=== PATIENT | male | born 1995 | race Caucasian/White ===

== ENCOUNTER 2017-03-03 05:52 | Emergency (ER) | payer BC ==
--- NOTE | 2017-03-03 07:35 | ED ---
HPI Chest Pain - HPI Summary HPI Summary: 21M presents with chest pain and racing heart for 10 mins this morning. He states he was unable to sleep last night. At 4am he woke up think he was having a heart attack. He states he felt sweaty, had midsternal chest pain, SOB , and dizzy. He states he has had a cough over the past few days. He denies any calf pain or swelling or recent travel. He states that his symptoms resolved. He does have a history of anxiety. He is a nonsmoker and denies any cardiac family history. - History of Current Complaint Chief Complaint: EDGeneral Time Seen by Provider: 03/03/17 06:38 Pain Intensity: 0 - Allergy/Home Medications Allergies/Adverse Reactions: Allergies Allergy/AdvReac Type Severity Reaction Status Date / Time No Known Allergies Allergy Verified 03/03/17 06:04 PMH/Surg Hx/FS Hx/Imm Hx Endocrine/Hematology History: Denies: Hx Diabetes Cardiovascular History: Denies: Hx Angina, Hx Hypertension Psychiatric History: Reports: Hx Anxiety Infectious Disease History: No Infectious Disease History: Denies: Traveled Outside the [place] in Last 30 Days - Family History Known Family History: Negative: Cardiac Disease - Social History Alcohol Use: None Substance Use Type: Reports: None Smoking Status (MU): Never Smoked Tobacco Review of Systems Negative: Fever Positive: Palpitations - resolved, Chest Pain - resolved Positive: Shortness Of Breath - resolved, Cough Negative: Abdominal Pain All Other Systems Reviewed And Are Negative: Yes Physical Exam Triage Information Reviewed: Yes Vital Signs On Initial Exam: Initial Vitals Temp Pulse Resp BP Pulse Ox 99 F 97 20 134/82 98 03/03/17 06:01 03/03/17 06:01 03/03/17 06:01 03/03/17 06:01 03/03/17 06:01 Vital Signs Reviewed: Yes Appearance: Positive: Well-Appearing Skin: Positive: Warm, Dry Head/Face: Positive: Normal Head/Face Inspection Eyes: Positive: Normal, Conjunctiva Clear ENT: Positive: Normal ENT inspection, Pharynx normal, TMs normal Respiratory/Lung Sounds: Positive: Clear to Auscultation, Breath Sounds Present Cardiovascular: Positive: Normal, RRR Abdomen Description: Positive: Nontender, Soft Bowel Sounds: Positive: Present - [place] Coma Scale Coma Scale Total: 15 Diagnostics - Vital Signs Vital Signs Temp Pulse Resp BP Pulse Ox 03/03/17 06:03 99 F 97 20 134/82 98 03/03/17 06:01 99 F 97 20 134/82 98 - Laboratory Result Diagrams: 03/03/17 08:46 03/03/17 08:46 Lab Statement: Any lab studies that have been ordered have been reviewed, and results considered in the medical decision making process. - Radiology chest Xray Interpretation: No Acute Changes Radiology Interpretation Completed By: Radiologist - EKG No standard instances Cardiac Rate: NL EKG Rhythm: Sinus Rhythm Chest Pain Course/Dx - Course Course Of Treatment: 21M presents with chest pain, palpitations, SOB for 10 mins this morning. He does have a history of anxeity but states he has never had symptoms. He states his symptoms resolved. He does not have any cardiac risk factors. on exam no reproducible chest pain, is speaking in fast sentences. chest xray normal. EKG normal. labs:tropoin 0, TSH normal. discussed that chest pain likely due to anxiety - Chest Pain Differential Diagnosis/HQI/PQRI: Chest Wall, Pulmonary Embolism, Other: - anxeity - Diagnoses Provider Diagnoses: Chest pain Discharge - Discharge Plan Condition: Good Disposition: HOME Patient Education Materials: Anxiety (ED) Referrals: Non Staff,Doctor [Primary Care Provider] - Additional Instructions: Your symptoms likely due to anxiety Take deep breaths and practice relaxation techniques Return to ED if develop any suicidal ideation or any new or worsening symptoms
--- NOTE | 2017-03-03 07:45 | RAD ---
HISTORY: Chest pain COMPARISONS: None VIEWS: 2: Frontal dual-energy and lateral views of the chest. FINDINGS: CARDIOMEDIASTINAL SILHOUETTE: The cardiomediastinal silhouette is normal. MEGAN: The megan are normal. PLEURA: The costophrenic angles are sharp. No pleural abnormalities are noted. LUNG PARENCHYMA: The lungs are clear. ABDOMEN: The upper abdomen is clear. There is no subphrenic gas. BONES AND SOFT TISSUES: No bone or soft tissue abnormalities are noted. OTHER: None. IMPRESSION: NO ACTIVE CARDIOPULMONARY DISEASE.
[2017-03-03 09:00] LABS: Hematocrit 44 % (42-52); Hemoglobin 14.5 g/dl (14.0-18.0); Mean Corpuscular HGB Conc 33 g/dl (31-36); Mean Corpuscular Hemoglobin 30 pg (27-31); Mean Corpuscular Volume 89 fL (80-94); Mean Platelet Volume 8 um3 (7.4-10.4); Red Blood Count 4.91 10^6/ul (4.0-5.4); Red Cell Distribution Width 14 % (10.5-15); White Blood Count 8.5 10^3/ul (3.5-10.8)
[2017-03-03 09:17] LABS: Albumin 4.5 g/dL (3.2-5.2); BUN/Creatinine Ratio 13.5 (8-20); Calcium 9.3 mg/dL (8.6-10.3); EGFR African American 175.2 (>60); EGFR Non-African American 136.3 (>60); Globulin 2.4 g/dL (2-4); Total Bilirubin 0.9 mg/dL (0.2-1.0); Total Protein 6.9 g/dL (6.4-8.9)
[2017-03-03 09:50] LABS: TSH (Thyroid Stimulating Horm) 2.33 mcIU/mL (0.34-5.60)
[2017-03-03 10:17] VITALS: BP 128/84
[2017-03-03 10:19] LABS: Urine Bilirubin Negative (Negative); Urine Glucose Negative (Negative); Urine Nitrite Negative (Negative)
== END 2017-03-03 10:12 | disposition home or self-care (01) ==
LOC: EDBD 05:52 → ED 05:52
DX: R07.9 Chest pain, unspecified (principal)
CPT/HCPCS: 36415; 71020; 80053; 81003; 84443; 84484; 85025; 85379; 93005; 99283

== ENCOUNTER 2017-03-04 19:47 | Emergency (ER) | payer BC ==
[2017-03-04] MEDS ORDERED: LORazepam TAB(*) 1 MG PO ONE (20:06)
[2017-03-04 21:49] LABS: Hematocrit 46 % (42-52); Hemoglobin 15.3 g/dl (14.0-18.0); Mean Corpuscular HGB Conc 34 g/dl (31-36); Mean Corpuscular Hemoglobin 30 pg (27-31); Mean Corpuscular Volume 89 fL (80-94); Mean Platelet Volume 8 um3 (7.4-10.4); Red Blood Count 5.18 10^6/ul (4.0-5.4); Red Cell Distribution Width 13 % (10.5-15); White Blood Count 8.2 10^3/ul (3.5-10.8)
[2017-03-04 22:04] LABS: Albumin 4.8 g/dL (3.2-5.2); BUN/Creatinine Ratio 12.9 (8-20); Calcium 9.4 mg/dL (8.6-10.3); EGFR African American 149.3 (>60); EGFR Non-African American 116.1 (>60); Globulin 2.6 g/dL (2-4); Potassium 3.8 mmol/L (3.5-5.0); Total Bilirubin 0.8 mg/dL (0.2-1.0); Total Protein 7.4 g/dL (6.4-8.9)
[2017-03-04 22:59] LABS: Benzodiazepine Urine Screen None Detected (None Detect)
[2017-03-04 23:52] VITALS: BP 124/70
--- NOTE | 2017-03-04 23:55 | ED ---
anika Strong Timothy, scribed for Brent Chapin MD on 03/04/17 at 2005 . Psychiatric Complaint - HPI Summary HPI Summary: Ruben Cotto is a 21 yo male presenting to [facility] with anxiety, BIBA. He states he was trying to go to dinner at the [employer] but was unable to as he was stopping every few feet with chest tightness and dizziness. He was seen in [facility] yesterday with the same complaint. He states he felt cold and pale when he stopped. He states he finished a course of doxycyline 02/26/17. He has not changed anything in his normal routine. He does not believe the source of his symptoms are anxiety. He is from [place]. His MHx includes cystitis and anxiety. - History Of Current Complaint Time Seen by Provider: 03/04/17 20:04 Hx Obtained From: Patient Onset/Duration: Sudden Onset Timing: Constant Severity Initially: Moderate Severity Currently: Moderate Character: Anxious - Allergies/Home Medications Allergies/Adverse Reactions: Allergies Allergy/AdvReac Type Severity Reaction Status Date / Time No Known Allergies Allergy Verified 03/04/17 21:27 Home Medications: Home Medications NK [No Home Medications Reported] 03/04/17 [History Confirmed 03/04/17] PMH/Surg Hx/FS Hx/Imm Hx Endocrine/Hematology History: Denies: Hx Diabetes Cardiovascular History: Denies: Hx Angina, Hx Hypertension Psychiatric History: Reports: Hx Anxiety Infectious Disease History: Denies: Traveled Outside the [place] in Last 30 Days - Family History Known Family History: Negative: Cardiac Disease, Hypertension, Diabetes - Social History Alcohol Use: None Substance Use Type: Reports: None Smoking Status (MU): Never Smoked Tobacco Review of Systems Positive: Chills, Other - pale Eyes: Negative ENT: Negative Positive: Chest Pain - chest tightness Respiratory: Negative Gastrointestinal: Negative Genitourinary: Negative Musculoskeletal: Negative Skin: Negative Neurological: Other - dizziness Positive: Anxious All Other Systems Reviewed And Are Negative: Yes Physical Exam Triage Information Reviewed: Yes Vital Signs Reviewed: Yes Appearance: Positive: No Pain Distress - anxious, Thin Skin: Positive: Warm Head/Face: Positive: Normal Head/Face Inspection Eyes: Positive: UBALDO ENT: Positive: Hearing grossly normal Neck: Positive: Supple Respiratory/Lung Sounds: Positive: Clear to Auscultation, Breath Sounds Present Cardiovascular: Positive: RRR Abdomen Description: Positive: Nontender, Soft Bowel Sounds: Positive: Present Musculoskeletal: Positive: Strength/ROM Intact Neurological: Positive: Sensory/Motor Intact, Alert, Oriented to Person Place, Time Diagnostics - Laboratory Result Diagrams: 03/04/17 21:40 03/04/17 21:40 Lab Statement: Any lab studies that have been ordered have been reviewed, and results considered in the medical decision making process. - EKG 2022 Cardiac Rate: NL - 76 BPM EKG Interpretation: NSR @ 76 BPM, normal EKG. Re-Evaluation - Re-Evaluation First Eval Change: Improved - results d/w pt Course/Dx - Course Assessment/Plan: Ruben Cotto is a 21 yo male presenting to [facility] with anxiety, though he does not believe his Sx are anxiety related, as he felt chest tightness, chills, and dizziness when walking to his [employer] this evening. He was seen in the ED yesterday for similar Sx. In the ED he was given ativan to control his anxiety. After clinical examination and review of his EKG and lab studies he will be discharged with palpitations and anxiety with appropriate instructions. - Differential Dx/Clinical Impression Provider Diagnosis: Heart palpitations, Anxiety Discharge - Discharge Plan Condition: Stable Disposition: HOME Patient Education Materials: Palpitations (ED), Anxiety (ED) Referrals: Kody Magana DO [Medical Doctor] - 2 Days [facility] JESSICA Cueva [Medical Doctor] - 2 Days Additional Instructions: Please follow up with Dr. Magana, a sqe, and Jessica regarding your visit to the emergency department today. Return to the emergency department with any new or recurring symptoms. The documentation as recorded by the anika sanchez Timothy accurately reflects the service I personally performed and the decisions made by me, Brent Chapin MD.
== END 2017-03-04 23:41 | disposition home or self-care (01) ==
LOC: ED 19:47
DX: R00.2 Palpitations (principal); R07.9 Chest pain, unspecified; F41.9 Anxiety disorder, unspecified; R42 Dizziness and giddiness
CPT/HCPCS: 36415; 80053; 80307; 85025; 93005; 99283; A9270-GY

== ENCOUNTER 2018-12-27 07:38 | Emergency (ER) | payer BC ==
[2018-12-27] MEDS ORDERED: NS 0.9% 1000 ML** 1,000 ML IV ONE (07:58)
--- NOTE | 2018-12-27 07:58 | ED ---
Abdominal Pain/Male - HPI Summary HPI Summary: Pt is a 23 y/o male who presents to the ED c/o abdominal pain. He woke up this morning with severe periumbilical pain and nausea, and was shaking 20 minutes due to the pain. The pain has somewhat resolved, and is now rated as a 3/10 in severity. Pt notes decreased appetite, and has not eaten today. He denies any fever, vomiting, or burning with urination. Movement makes the pain worse. Pt notes he was lifting and moving his bed yesterday. He denies any hx of abdominal surgeries. - History of Current Complaint Chief Complaint: EDAbdPain Stated Complaint: ABD PAIN Time Seen by Provider: 12/27/18 07:44 Hx Obtained From: Patient Onset/Duration: Sudden Onset, Lasting Hours - This morning, Resolved Timing: Constant Severity Initially: Severe Severity Currently: Moderate Pain Intensity: 3 Pain Scale Used: 0-10 Numeric Location: Umbilical Radiates: No Aggravating Factor(s): Movement Alleviating Factor(s): Nothing Associated Signs And Symptoms: Positive: Nausea. Negative: Fever, Urinary Symptoms, Vomiting, Diarrhea - Allergies/Home Medications Allergies/Adverse Reactions: Allergies Allergy/AdvReac Type Severity Reaction Status Date / Time No Known Allergies Allergy Verified 12/27/18 07:42 Home Medications: Home Medications FluvoxaMINE (NF) [Fluvoxamine (NF)] 100 mg PO DAILY 12/27/18 [History Confirmed 12/27/18] LORazepam [Lorazepam] 1 tab PO DAILY 12/27/18 [History Confirmed 12/27/18] Sertraline* [Zoloft*] 200 mg PO DAILY 12/27/18 [History Confirmed 12/27/18] PMH/Surg Hx/FS Hx/Imm Hx Endocrine/Hematology History: Denies: Hx Diabetes Cardiovascular History: Denies: Hx Angina, Hx Hypertension Psychiatric History: Reports: Hx Anxiety - Immunization History Date of Tetanus Vaccine: utd Date of Influenza Vaccine: utd Infectious Disease History: No Infectious Disease History: Denies: Traveled Outside the [place] in Last 30 Days - Family History Known Family History: Negative: Cardiac Disease, Hypertension, Diabetes - Social History Alcohol Use: None Hx Substance Use: No Substance Use Type: Reports: None Hx Tobacco Use: No Smoking Status (MU): Never Smoked Tobacco Review of Systems Positive: Other - Shakiness due to pain. Negative: Fever Positive: Abdominal Pain, Nausea, Other - Decreased appetite. Negative: Vomiting Negative: burning All Other Systems Reviewed And Are Negative: Yes Physical Exam - Summary Physical Exam Summary: GENERAL: Patient is a well-developed and nourished M who is lying comfortable in the stretcher. Patient is not in any acute respiratory distress. HEAD AND FACE: Normocephalic EYES: PERRLA, EOMI x 2. EARS: Hearing grossly intact. MOUTH: Oropharynx within normal limits. NECK: Supple, trachea is midline, no adenopathy, no JVD, no carotid bruit. CHEST: Symmetric, no tenderness at palpation LUNGS: Clear to auscultation bilaterally. No wheezing or crackles. CVS: Regular rate and rhythm, S1 and S2 present, no murmurs or gallops appreciated. ABDOMEN: Soft. Bowel sounds are normal. No abdominal abnormal pulsations. Tenderness to palpation of periumbilical area. EXTREMITIES: Full ROM in all major joints, no edema, no cyanosis or clubbing. NEURO: Alert and oriented x 3. No acute neurological deficits. Speech is normal and follows commands. SKIN: Dry and warm Triage Information Reviewed: Yes Vital Signs On Initial Exam: Initial Vitals Temp Pulse Resp BP Pulse Ox 98.7 F 92 20 129/90 97 12/27/18 07:39 12/27/18 07:39 12/27/18 07:39 12/27/18 07:39 12/27/18 07:39 Vital Signs Reviewed: Yes Diagnostics - Vital Signs Vital Signs Temp Pulse Resp BP Pulse Ox 12/27/18 07:39 98.7 F 92 20 129/90 97 - Laboratory Result Diagrams: 12/27/18 08:03 12/27/18 08:03 Lab Statement: Any lab studies that have been ordered have been reviewed, and results considered in the medical decision making process. - CT CT A/P CT Interpretation Completed By: Radiologist Summary of CT Findings: 1. THERE IS A SMALL AMOUNT OF FLUID WITHIN THE RIGHT LOWER QUADRANT. WHILE THE APPENDIX. APPEARS NORMAL, THIS MAY BE AN EARLY FINDING OF PERIAPPENDICEAL INFLAMMATORY CHANGE IN THE. SETTING OF ACUTE APPENDICITIS IN THE CORRECT CLINICAL SETTING. 2. LARGE AMOUNT STOOL THROUGHOUT THE COLON. 3. MILDLY ENLARGED PROSTATE. ED physician reviewed radiology report. Re-Evaluation - Re-Evaluation First Eval Re-Evaluation Time: 11:10 Change: Improved Comment: Pt is now pain free. Abdominal Pain Fem Course/Dx - Course Course Of Treatment: Pt is a 23 y/o male who presents to the ED c/o severe periumbilical pain and nausea. A CT A/P revealed 1. THERE IS A SMALL AMOUNT OF FLUID WITHIN THE RIGHT LOWER QUADRANT. WHILE THE APPENDIX. APPEARS NORMAL, THIS MAY BE AN EARLY FINDING OF PERIAPPENDICEAL INFLAMMATORY CHANGE IN THE. SETTING OF ACUTE APPENDICITIS IN THE CORRECT CLINICAL SETTING. 2. LARGE AMOUNT STOOL THROUGHOUT THE COLON. 3. MILDLY ENLARGED PROSTATE. Patient seen by general surgery at bedside and cleared for DC home. Pt will be discharged with final dx of abdominal pain and constipation. I discussed results with patient and he reports feeling better. He is hemodynamically stable and safe for discharge. Strict return precautions given and he will otherwise follow up with his PCP. - Diagnoses Provider Diagnoses: Abdominal pain, Constipation - Provider Notifications Discussed Care Of Patient With: Celestine Chris Time Discussed With Above Provider: 09:41 Instructed by Provider To: Other - Dr. Chris will call back. At 10:50 VANE Varghese came down from surgery to consult. Pt is now pain free and can be discharged. Discharge - Sign-Out/Discharge Documenting (check all that apply): Patient Departure - Discharge Patient Received Moderate/Deep Sedation with Procedure: No - Discharge Plan Condition: Stable Disposition: HOME Patient Education Materials: Constipation (ED), Acute Abdominal Pain (ED) Referrals: [facility] PHYSICIAN REFERRAL [Outside] Additional Instructions: Follow up with your primary care physician in 1-3 days. RETURN TO THE EMERGENCY DEPARTMENT FOR CHANGING OR WORSENING SYMPTOMS. - Billing Disposition and Condition Condition: STABLE Disposition: Home - Attestation Statements Document Initiated by Yuly: Yes Documenting Scribe: Porsche Borges Provider For Whom Yuly is Documenting (Include Credential): Kiki Cantu MD Scribe Attestation: Porsche Strong scribed for Kiki Cantu MD on 12/28/18 at 1245. Scribe Documentation Reviewed: Yes Provider Attestation: The documentation as recorded by the Porsche sanchez accurately reflects the service I personally performed and the decisions made by me, Kiki Cantu MD Status of Scribe Document: Viewed
[2018-12-27] MEDS ORDERED: Ondansetron INJ* 2 MG/ML VIAL IV ONE (07:59)
[2018-12-27] MEDS ORDERED: Ketorolac INJ* 30 MG/ML 1 ML VIAL IV PUSH ONE (07:59)
[2018-12-27 08:33] LABS: ABS Basophils 0 10^3/ul (0-0.2); ABS Eosinophils 0 10^3/ul (0-0.6); ABS Lymphocytes 3.2 10^3/ul (1.0-4.8); ABS Monocytes 0.6 10^3/ul (0-0.8); ABS Neutrophils 3.4 10^3/ul (1.5-7.7); ABS Nucleated RBC 0 10^3/ul; Eosinophil % 0.5 %; Hematocrit 48 % (42-52); Hemoglobin 16.2 g/dl (14.0-18.0); Lymphocyte % 43.7 %; Mean Corpuscular HGB Conc 34 g/dl (31-36); Mean Corpuscular Hemoglobin 30 pg (27-31); Mean Corpuscular Volume 89 fL (80-94); Mean Platelet Volume 7.8 fL (7.4-10.4); Nucleated Red Blood Cells % 0; Platelet Count 194 10^3/ul (150-450); Red Cell Distribution Width 13 % (10.5-15); White Blood Count 7.3 10^3/ul (3.5-10.8)
[2018-12-27 08:48] LABS: Albumin 4.4 g/dL (3.2-5.2); Albumin/Globulin Ratio 1.8 (1-3); BUN/Creatinine Ratio 19.5 (8-20); C Reactive Protein 1.47 mg/L (<8.01); Calcium 8.9 mg/dL (8.6-10.3); EGFR African American 154.3 (>60); EGFR Non-African American 127.5 (>60); Globulin 2.4 g/dL (2-4); Potassium 3.7 mmol/L (3.5-5.0); Total Bilirubin 0.6 mg/dL (0.2-1.0); Total Protein 6.8 g/dL (6.4-8.9)
[2018-12-27 08:54] LABS: Urine Appearance Clear; Urine Bilirubin Negative (Negative); Urine Blood Negative (Negative); Urine Color Yellow; Urine Glucose Negative (Negative); Urine Ketones Negative (Negative); Urine Nitrite Negative (Negative); Urine Protein Negative (Negative); Urine Specific Gravity 1.025 (1.010-1.030); Urine Urobilinogen Negative (Negative)
[2018-12-27] MEDS ORDERED: Iohexol 300* (CONTRAST) 10 ML SDV IV ONE (08:59)
[2018-12-27] MEDS ORDERED: Magnesium CITRATE* 300 ML BTL PO ONE (11:07)
[2018-12-27 11:22] VITALS: BP 134/76
--- NOTE | 2018-12-27 18:10 | CONS ---
SURGICAL CONSULTATION NOTE: DATE OF CONSULT: 12/27/18 - EMERGENCY DEPT ATTENDING SURGEON: Dr. Celestine Chris (dictated by VANE Gray). REASON FOR CONSULT: Abdominal pain. HISTORY OF PRESENT ILLNESS: This is a 23-year-old generally healthy male, [employer] student, who noted fairly sudden onset of periumbilical pain around 7 a.m. this morning. He describes the pain as being just below the umbilicus, as being sharp and colicky in nature with a peak of 6-7/10. He presented to the ED. He has not received any pain medication though states that at the present time, his pain is 0. He did have some associated nausea, but no vomiting. He did have 1 previous episode during the fall sem. Workup at that time was negative, but did not include CT. He has had no symptoms. He states his last bowel movement was yesterday and otherwise normal. He has not had any prior abdominal surgeries. There is no significant family history of gastrointestinal diseases. PAST MEDICAL HISTORY: Unremarkable for any chronic or active medical problems. He has not had any prior surgeries. CURRENT MEDICATIONS: None. DRUG ALLERGIES: None. FAMILY HISTORY: His paternal grandfather did from colon cancer in his 80s. No known family history of anesthesia problems, bleeding, or clotting disorder. 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 He denies use of tobacco. He drinks on average 1 drink per week. He denies any other recreational drug use. REVIEW OF SYSTEMS: General: No recent constitutional symptoms or acute illnesses other than described in the HPI. HEENT: No problems reported. Cardiovascular: No chest pain, palpitations, history of heart murmur. Respiratory: No history of asthma, chronic cough, or shortness of breath. GI: As above per HPI. No additions. : No additions. Endocrine: No diabetes or thyroid dysfunction. Remainder of review of systems is negative. PHYSICAL EXAM: Height 5 feet 6 inches, weight 150 pounds. He is afebrile. His vital signs are stable as noted in his record. General: Well-nourished, well- developed male, in no acute distress. He appears comfortable on the ED stretcher. He appears somewhat anxious. Skin: Warm and dry. No suspicious rashes or lesions. HEENT: Pupils are equal, round, and reactive. EOMs intact. No conjunctival pallor or scleral icterus. Oropharynx: Mucous membranes moist. Teeth in good repair. No intraoral lesions. Neck: No lymphadenopathy, thyromegaly, or masses. Heart: Regular rate and rhythm. No murmur noted. Lungs: Clear to auscultation. No rales or wheezes. Abdomen: Flat, nondistended. Bowel sounds present and active. He is very sensitive to palpation of his abdomen, which he states is his usual baseline; however, with careful exam, I am unable to elicit any areas of tenderness. No palpable masses or organomegaly. Genitalia: Not specifically examined. Back: No spinous process or CVA tenderness. Extremities: No edema. Neurological: Grossly intact. DIAGNOSTIC STUDIES/LAB DATA: Notable for white blood cell count of 7,300 with a normal differential, hemoglobin 16.2. CRP is normal at 1.47. Lactic acid normal at 0.5. Urinalysis is normal. CT scan of the abdomen and pelvis with oral and IV contrast is essentially unremarkable. It was reviewed in person and with Dr. Clark. The appendix is visualized and is normal in appearance. There is a question of small amount of fluid in the right lower quadrant, otherwise exam is unremarkable. CT is also notable for moderate amount of stool throughout the colon. IMPRESSION: Abdominal pain, not likely to represent appendicitis or other surgical cause, possible contribution from constipation. PLAN: Likely to be discharged from the ED with resumption of usual diet and I have reviewed regimen regarding the constipation. Followup with our office will be p.r.n. I did give him a card from our office for contact information as needed. VANE GRAY [id number]/[facility] #: [id number] DAR
== END 2018-12-27 11:21 | disposition home or self-care (01) ==
LOC: ED 07:38
DX: R10.33 Periumbilical pain (principal); K59.00 Constipation, unspecified; N40.0 Benign prostatic hyperplasia without lower urinary tract symptoms; R11.0 Nausea; F41.9 Anxiety disorder, unspecified
CPT/HCPCS: 36415; 74177; 80053; 81003; 83605; 83690; 85025; 86140; 96360; 99282; A9270-GY; J1885; J2405; Q9967